=== PATIENT | female | born 1995 | race American Indian/Alaskan Native ===

== ENCOUNTER → 2020-07-17 | Emergency (ER) | payer SELFPAY ==
[~2020-07-17] MED LIST: ACETAMINOPHEN 325 MG TAB PO PRN; DIPHtheria,PERTUSSIS(ACELL),TETANUS VACCINE/PF 0.5 ML VIAL IM ONE; HALOPERIDOL LACTATE 5 MG/1 ML INJ IM ONE; HALOPERIDOL LACTATE 5 MG/1 ML INJ IM PRN; LORazepam 2 MG/ML VIAL IM ONE; LORazepam 2 MG/ML VIAL IM PRN; ONDANSETRON 4 MG ODT TAB PO PRN; ZIPRASIDONE MESYLATE 20 MG VIAL IM ONE
--- NOTE | 2020-07-17 16:38 | Emergency Department Report ---
ED General Adult HPI - General Chief complaint: Wound/Laceration Stated complaint: MENTAL HEALTH PUI?: No Time Seen by Provider: 07/17/20 16:31 Source: patient, RN notes reviewed, old records reviewed Mode of arrival: Ambulatory Limitations: Other (Patient is very withdrawn) - History of Present Illness Initial comments: The patient was evaluated in the emergency department for symptoms described in the history of present illness. He/she was evaluated in the context of the global COVID-19 pandemic, which necessitated consideration that the patient might be at risk for infection with the virus that causes COVID-19. Instit utional protocols and algorithms that pertain to the evaluation of patients at risk for COVID-19 are in a state of rapid change based on information released by regulatory bodies including the CDC and federal and state organizations. These policies and algorithms were followed during the patient's care in the emergency department. Please note that these policies, procedures and recommendations changed on a rapid basis. During the history and physical examination, I am chaperoned by oracle fusion developer Manasa Rod Patient is a 25-year-old female. She was reportedly brought to the hospital by her significant other, who is not available for additional information or collateral information. The patient presents with a number of self-inflicted superficial wounds to her left upper extremity. The patient also reports superficial accidental wound to her right upper extremity. She only has sup erficial left forearm pain, and denies headache, neck pain, chest pain, abdominal pain, shortness of breath, homicidality. She indicates that she was feeling suicidal. She indicates that she is having hallucinations. She is not sure if she overdosed on anything. Patient denies fever, , loss of taste, loss of smell, and Covid symptomatology. She reports that she has a history of bipolar, schizophrenia, and is not currently taking prescription medications. She cannot tell me why she inflicted the wounds on her left upper extremity. She is not quite sure when her last tetanus vaccination took place -: hour(s) Location: left, right, upper extremity, lower extremity Radiation: non-radiation Quality: aching Consistency: intermittent Improves with: rest Worsens with: movement - Related Data Allergies Allergy/AdvReac Type Severity Reaction Status Date / Time No Known Allergies Allergy Verified 07/17/20 16:12 ED Review of Systems ROS: Stated complaint: MENTAL HEALTH Other details as noted in HPI Constitutional: denies: fever Respiratory: denies: cough Cardiovascular: denies: chest pain Gastrointestinal: denies: abdominal pain Genitourinary: denies: urgency Musculoskeletal: myalgia Skin: rash, lesions Psychiatric: as per HPI, suicidal thoughts ED Past Medical Hx - Past Medical History Hx Psychiatric Treatment: Yes (Saw a psychologist for a brief period last hear) Additional medical history: pneumonia - Social History Smoking Status: Current Every Day Smoker Substance Use Type: Alcohol, Marijuana ED Physical Exam - General Limitations: No Limitations General appearance: alert, in no apparent distress - Head Head exam: Present: atraumatic, normocephalic - Eye Eye exam: Present: normal appearance, EOMI. Absent: nystagmus - ENT ENT exam: Present: normal exam, normal orophraynx, mucous membranes moist, normal external ear exam - Neck Neck exam: Present: normal inspection, full ROM. Absent: tenderness, meningismus - Respiratory Respiratory exam: Present: normal lung sounds bilaterally. Absent: respiratory distress, wheezes, rales, rhonchi, stridor, decreased breath sounds - Cardiovascular Cardiovascular Exam: Present: regular rate, normal rhythm, normal heart sounds. Absent: bradycardia, tachycardia, irregular rhythm, systolic murmur, diastolic murmur, rubs, gallop - GI/Abdominal GI/Abdominal exam: Present: soft. Absent: distended, tenderness, guarding, rebound, rigid, pulsatile mass - Extremities Exam Extremities exam: Present: full ROM, other (2+ pulses noted in the bilateral upper and lower extremities. There is no palpable cord. negative Homans sign. Muscular compartments are soft. The pelvis is stable.). Absent: normal inspection (There are a number of superficial linear wounds, on the volar aspect of the left forearm, parallel to each other. Nothing require sutures. On the right volar ring finger, superficial abrasion.), pedal edema, calf tenderness - Back Exam Back exam: Present: normal inspection, full ROM. Absent: tenderness, CVA tenderness (R), CVA tenderness (L), paraspinal tenderness, vertebral tenderness - Neurological Exam Neurological exam: Present: alert, other (No facial droop. Tongue midline. Extraocular movements intact bilaterally. Facial sensation intact to light touch in V1, V2, V3 distribution bilaterally. 5 and a 5 strength in 4 extremities. Sensation intact to light touch in 4 extremities.) - Psychiatric Psychiatric exam: Present: flat affect - Skin Skin exam: Present: warm, dry. Absent: rash ED Course Vital Signs 07/17/20 07/17/20 07/17/20 16:15 20:12 21:49 Temperature 98.6 F 97.5 F L Pulse Rate 96 H 148 H 98 H Respiratory 18 18 Rate Blood Pressure 128/93 Blood Pressure 129/84 [Right] O2 Sat by Pulse 100 98 100 Oximetry - Reevaluation(s) Reevaluation #1: 07/17/20 16:37 Differential diagnosis, including but not limited to: Medical clearance for psychiatric placement, self-inflicted wounds, superficial abrasions Assessment and plan: 25-year-old female, essentially presenting with superficial self-inflicted wounds, history/report of hallucinations, and suicidality. I counseled the patient on the need to obtain emergent laboratory studies to exclude time sensitive toxicologic/metabolic abnormalities, and also advised the patient that we would place her on a 1013, and she would require psychiatric evaluation after being medically cleared. Patient ran out from the emergency room. Nursing team to contact local law enforcement, and inform them that the patient has eloped/absconded from this emergency room, while on a 1013. Reevaluation #2: 07/17/20 17:33 Patient read presented to the emergency room. She is currently in our for for psychiatric holding area. Apparently, she was she was verbally agitated and belligerent, and required medication with haloperidol and Ativan that was ordered by my colleague. Additional orders have been placed. 07/18/20 00:00 Laboratory studies do not demonstrate any emergent medical condition. Tachycardia resolved. Nursing team informs me that patient is resting comfortably at this time. Patient does not appear to have an immediate medical contraindication to psychiatric admission, evaluation, consultation and placement. ED Medical Decision Making - Lab Data Result diagrams: 07/17/20 21:35 07/17/20 21:35 Vital Signs 07/17/20 16:15 Temperature 98.6 F Pulse Rate 96 H Blood Pressure 128/93 O2 Sat by Pulse 100 Oximetry Critical care attestation.: If time is entered above; I have spent that time in minutes in the direct care of this critically ill patient, excluding procedure time. ED Disposition Clinical Impression: Superficial abrasion, General medical exam, Medical clearance for psychiatric admission, History of hallucinations Disposition: [id number] PSY HOSP/PSY UNIT Is pt being admited?: No Does the pt Need Aspirin: No Condition: Good Referrals: PRIMARY CARE, [Primary Care Provider] - 3-5 Days
[2020-07-17 16:39] LABS: Amphetamine Screen,Urine PRESUMPTIVE NEGATIVE; Benzodiazepines Screen,Urine PRESUMPTIVE NEGATIVE; Cannabinoid Screen,Urine PRESUMPTIVE POSITIVE; Cocaine Screen,Urine PRESUMPTIVE NEGATIVE; Methadone Screen,Urine PRESUMPTIVE NEGATIVE; Opiate Screen,Urine PRESUMPTIVE NEGATIVE
[2020-07-17 16:41] LABS: Bacteria,Urine 1+ /HPF (Negative); Bilirubin,Urine NEG (Negative); Blood,Urine NEG (Negative); Color,Urine Yellow (Yellow); Mucus,Urine FEW /HPF; Protein,Urine <15 mg/dL mg/dL (Negative); RBC,Urine < 1.0 /HPF (0.0-6.0); Urobilinogen,Urine < 2.0 mg/dL (<2.0)
[2020-07-17 21:58] LABS: BUN/Creatinine Ratio 20; Blood Urea Nitrogen 16 mg/dL (7-17); Calcium 9.6 mg/dL (8.4-10.2); Hemolysis Index 15
[2020-07-17 22:03] LABS: Hemoglobin 13.2 gm/dl (10.1-14.3)
[2020-07-17 22:24] LABS: Hematocrit 37.8 % (30.3-42.9); Mean Corpuscular HGB Conc 35 % (30-34); Mean Corpuscular Volume 104 fl (79-97); Platelet Count 372 K/mm3 (140-440); Red Blood Count 3.63 M/mm3 (3.65-5.03); Red Cell Distribution Width 13.5 % (13.2-15.2)
[2020-07-17 23:05] LABS: HCG Qualitative,Urine Negative (Negative)
[2020-07-17 23:14] LABS: Total Cells Counted 100
[2020-07-17 23:16] LABS: Ovalocytes Rare; Platelet Estimate Consistent w Auto; Tear Drop Cells Rare
[2020-07-18] MEDS: BACITRACIN ZINC OINT 28.4 GM TP SCH ×3 (00:49→22:42)
--- NOTE | 2020-07-18 08:13 | Consultation ---
History of Present Illness - Reason for Consult Consult date: 07/18/20 Reason for consult: self inflicted wounds - History of Present Psychiatric Illness Per ED note, "Patient is a 25-year-old female. She was reportedly brought to the hospital by her significant other, who is not available for additional information or collateral information. The patient presents with a number of self-inflicted superficial wounds to her left upper extremity. The patient also reports superficial accidental wound to her right upper extremity. She only has superficial left forearm pain, and denies headache, neck pain, chest pain, abdominal pain, shortness of breath, homicidality. She indicates that she was feeling suicidal. She indicates that she is having hallucinations. She is not sure if she overdosed on anything." During my interview with Eva De Leon she is sitting on the bed eating breakfast. She is picking over her food with her fingers. She makes poor eye contact. her affect is flat. She is guarded. The patient says she has a previous diagnoses of schizoaffective disorder, and has been off her meds for about 6 months. The patient says she initially came her to have her cuts looked at. She says she did them. The patient says she hears voices telling her she's stupid and to hurt herself. When asked was she suicidal, the patient replies "now that I'm here, I am." She denies any illicit drug use, other than THC. She denies alcohol or nicotine. PAST PSYCHIATRIC HISTORY Diagnoses: Schizoaffective Disorder Suicide attempts or Self-harm behavior: Yes Prior psychiatric hospitalizations: Yes Substance Abuse history: Denies Previous psychiatric medications tried: Could not recall Outpatient treatment: Denies at present PAST MEDICAL HISTORY: none reported Family Psychiatric History: None reported or documented SOCIAL HISTORY Marital Status: Living Arrangements: Lives alone Employment Status: Unemployed Access to guns/weapons: Denies Education: high school History of Abuse: none reported Legal History: none reported REVIEW OF SYSTEMS Constitutional: Negative for weight loss ENT: Negative for stridor Respiratory: Negative for cough or hemoptysis All other systems reviewed and are negative MENTAL STATUS EXAMINATION General Appearance and Behavior: Age appropriate, good hygiene, wearing appropriate clothes, poor eye contact, cooperative polite with questioning. Cooperation: Participating/engaged, guarded Psychomotor Behavior: unremarkable and within normal limits Mood: "down" Affect and affective range: congruent with mood, flat Thought Process: goal directed Thought Content: hallucinations, suicidal thoughts Speech: Normal volume, Regular rate and rhythm, Intellectual Functioning: Average Suicidal Ideation: Yes Homicidal Ideation: Denies Hallucinations: Auditory Delusions: None elicite Impulse Control: Normal Insight and Judgment: Limited insight and judgment, Memory: Normal, Attention: Normal, Orientation: Alert, oriented, Assessment and Plan (1) Schizoaffective Disorder (20.9) Current Visit: Yes Status: Acute Treatment Start Seroquel 50mg po BID Start Trazodone 50mg po qhs Sitter: Per primary Medical: Per primary Disposition: Recommend acute inpatient psychiatric treatment. Case staffed with Dr. Lopez Will follow. Medications and Allergies Allergies Allergy/AdvReac Type Severity Reaction Status Date / Time No Known Allergies Allergy Verified 07/17/20 16:12 Active Meds: Active Medications Acetaminophen (Acetaminophen 325 Mg Tab) 650 mg PO Q6HR PRN PRN Reason: PAIN Bacitracin (Bacitracin Zinc Oint 28.4 Gm) 1 applic TP BID WILFRIDO Last Admin: 07/18/20 00:49 Dose: Not Given Documented by: Lorazepam (Lorazepam 2 Mg/Ml Vial) 2 mg IM Q4HR PRN PRN Reason: Agitation Ondansetron HCl (Ondansetron 4 Mg Odt Tab) 4 mg PO Q6HR PRN PRN Reason: Nausea Mental Status Exam - Vital signs Last Vital Signs Temp 97.6 F 07/18/20 07:58 Pulse 65 07/18/20 07:58 Resp 18 07/18/20 07:58 BP 114/75 07/18/20 07:58 Pulse Ox 98 07/18/20 07:58 Results Result Diagrams: 07/17/20 21:35 07/17/20 21:35 Abnormal lab results 07/17/20 07/17/20 07/17/20 Range/Units 21:35 21:35 21:35 RBC (3.65-5.03) M/mm3 MCV (79-97) fl MCH (28-32) pg MCHC (30-34) % Sodium 136 L (137-145) mmol/L Carbon Dioxide 20 L (22-30) mmol/L Total Creatine Kinase (30-135) units/L Salicylates < 0.3 L (2.8-20.0) mg/dL Acetaminophen 5.0 L (10.0-30.0) ug/mL 07/17/20 07/17/20 Range/Units 21:35 21:35 RBC 3.63 L (3.65-5.03) M/mm3 MCV 104 H (79-97) fl MCH 36 H (28-32) pg MCHC 35 H (30-34) % Sodium (137-145) mmol/L Carbon Dioxide (22-30) mmol/L Total Creatine Kinase 913 H (30-135) units/L Salicylates (2.8-20.0) mg/dL Acetaminophen (10.0-30.0) ug/mL All other labs normal.
[2020-07-18 10:48] LABS: Hemoglobin 13.3 gm/dl (10.1-14.3); Mean Corpuscular HGB Conc 34 % (30-34); Mean Corpuscular Volume 104 fl (79-97); Platelet Count 380 K/mm3 (140-440); Red Blood Count 3.77 M/mm3 (3.65-5.03); Red Cell Distribution Width 13.2 % (13.2-15.2)
[2020-07-18 11:17] LABS: Alanine Aminotransferase 18 units/L (7-56); Albumin 4.6 g/dL (3.9-5); BUN/Creatinine Ratio 18; Blood Urea Nitrogen 14 mg/dL (7-17); Calcium 9.6 mg/dL (8.4-10.2); Hemolysis Index 5
[2020-07-18] MEDS: QUEtiapine 25 MG TAB PO SCH ×2 (11:35→22:43)
[2020-07-18] MEDS: traZODone 50 MG TAB PO SCH (22:44)
--- NOTE | 2020-07-19 09:16 | Progress Note ---
Subjective - Reason for Consult Consult date: 07/19/20 Reason for consult: Suicidal - Chief Complaint Chief complaint: During my interview with the patient she is irritable, and appears anxious. She is pacing. The nursing staff states the patient constantly comes to the desk asking questions. She makes poor eye contact. Her affect is flat. She is asking about going home and states that if she loses her job her life is over. Explained to the patient that it would be at her best interest to continue with the plan of inpatient due to her mental health status with recently tying a string around her neck and attempting to hang herself while in the hospital, and self mutilation. The patient replies "I did that because I'm here." The patient then went down the thomas and threw a desk. She was moved in the seclusion room to monitor her closely. The patient is in the room pacing. REVIEW OF SYSTEMS Constitutional: Negative for weight loss ENT: Negative for stridor Respiratory: Negative for cough or hemoptysis All other systems reviewed and are negative MENTAL STATUS EXAMINATION General Appearance and Behavior: Age appropriate, good hygiene, wearing appropriate clothes, poor eye contact, irritable Cooperation: Participating/engaged, guarded Psychomotor Behavior: unremarkable and within normal limits Mood: "upset" Affect and affective range: congruent with mood, flat Thought Process: illogical Thought Content: suicidal thoughts Speech: Normal volume, Regular rate and rhythm, Intellectual Functioning: Average Suicidal Ideation: Yes Homicidal Ideation: Denies Hallucinations: Auditory Delusions: None elicited Impulse Control: impaired Insight and Judgment: Limited insight and judgment, Memory: Normal, Attention: Limited, Orientation: Alert, oriented, Assessment and Plan (1) Schizoaffective Disorder (20.9) Current Visit: Yes Status: Acute Treatment Increase Seroquel 100mg po BID Start Depakote DR 125mg po BID Start Vistaril 25mg po BID Start Haldol 5mg IM q6h agitation Agree with PRN Lorazepam Sitter: Per primary Medical: Per primary Disposition: Recommend acute inpatient psychiatric treatment. Case staffed with Dr. Lopez Will follow. Mental Status Exam - Vital signs Last Vital Signs Temp 97.6 F 07/19/20 08:40 Pulse 90 07/19/20 08:40 Resp 18 07/19/20 08:40 BP 116/74 07/19/20 08:40 Pulse Ox 99 07/19/20 08:40
[2020-07-19] MEDS: hydrOXYzine PAMOATE 25 MG CAP PO SCH ×2 (10:29→22:24)
[2020-07-19] MEDS: DIVALPROEX DR 125 MG TAB PO SCH ×2 (10:29→22:24)
[2020-07-19] MEDS: QUEtiapine 100 MG TAB PO SCH ×2 (10:30→22:24)
[2020-07-19] MEDS: BACITRACIN ZINC OINT 28.4 GM TP SCH ×2 (10:32→22:25)
[2020-07-19] MEDS: traZODone 50 MG TAB PO SCH (22:24)
[2020-07-20] MEDS: BACITRACIN ZINC OINT 28.4 GM TP SCH (10:39)
[2020-07-20] MEDS: hydrOXYzine PAMOATE 25 MG CAP PO SCH (10:41)
[2020-07-20] MEDS: DIVALPROEX DR 125 MG TAB PO SCH (10:41)
[2020-07-20] MEDS: QUEtiapine 100 MG TAB PO SCH (10:41)
[2020-07-20 11:40] VITALS: BP 115/77
== END ==
LOC: ED 14:43
DX: S50.812A Abrasion of left forearm, initial encounter (principal); R45.851 Suicidal ideations; Z04.6 Encounter for general psychiatric examination, requested by authority; F17.200 Nicotine dependence, unspecified, uncomplicated; F12.10 Cannabis abuse, uncomplicated; X58.XXXA Exposure to other specified factors, initial encounter; Y93.89 Activity, other specified; Y92.89 Other specified places as the place of occurrence of the external cause; Y99.8 Other external cause status
CPT/HCPCS: 36415; 80048; 80307; 81001; 81025; 82550; 83735; 85007; 85025; 96372; 99285; J2060; 80053; 80320; 85027; G0480; J3486; Q0177; U0003

== ENCOUNTER 2021-11-01 13:56 | Emergency (ER) | payer SELFPAY ==
[2021-11-01 16:16] LABS: Basophils % (Auto) 0.5 % (0.0-1.8); Eosinophils # (Auto) 0.4 K/mm3 (0.0-0.4); Eosinophils % (Auto) 4.1 % (0.0-4.3); Hematocrit 39.2 % (30.3-42.9); Hemoglobin 13.1 gm/dl (10.1-14.3); Lymphocytes # (Auto) 2.4 K/mm3 (1.2-5.4); Lymphocytes % (Auto) 25.3 % (13.4-35.0); Mean Corpuscular HGB Conc 33 % (30-34); Mean Corpuscular Volume 101 fl (79-97); Monocytes # (Auto) 0.5 K/mm3 (0.0-0.8); Monocytes % (Auto) 4.8 % (0.0-7.3); Platelet Count 466 K/mm3 (140-440); Red Blood Count 3.88 M/mm3 (3.65-5.03); Red Cell Distribution Width 13.8 % (13.2-15.2)
[2021-11-01 16:39] LABS: BUN/Creatinine Ratio 11; Blood Urea Nitrogen 8 mg/dL (7-17); Calcium 10.1 mg/dL (8.4-10.2); Hemolysis Index 6
[2021-11-01] MEDS ORDERED: LORazepam 1 MG TAB PO ONE (18:26)
--- NOTE | 2021-11-01 19:21 | Emergency Department Report ---
ED Psych HPI - General Chief Complaint: Psych Stated Complaint: PSYCH Time Seen by Provider: 11/01/21 14:29 Source: patient, EMS Mode of arrival: Ambulatory - History of Present Illness Initial Comments: AUDITORY HALLUCINATIONS, WANTS TO SELF HARM MD Complaint: suicidal ideation, feels depressed -: Gradual, days(s) Associated Psychiatric Symptoms: suicidal ideation, auditory hallucinations History of same: Yes Quality: intermittent Associated Symptoms: denies other symptoms If Self Harm: admits thoughts of, has plan - Related Data Allergies Allergy/AdvReac Type Severity Reaction Status Date / Time No Known Allergies Allergy Verified 11/01/21 14:14 ED Review of Systems ROS: Stated complaint: PSYCH Other details as noted in HPI Constitutional: denies: chills, fever Eyes: denies: eye pain, eye discharge, vision change ENT: denies: ear pain, throat pain Respiratory: denies: cough, shortness of breath, wheezing Cardiovascular: denies: chest pain, palpitations Endocrine: no symptoms reported Gastrointestinal: denies: abdominal pain, nausea, diarrhea Genitourinary: denies: urgency, dysuria, discharge Musculoskeletal: denies: back pain, joint swelling, arthralgia Skin: denies: rash, lesions Neurological: denies: headache, weakness, paresthesias Psychiatric: denies: anxiety, depression Hematological/Lymphatic: denies: easy bleeding, easy bruising ED Past Medical Hx - Past Medical History Previous Medical History?: No Hx Hypertension: No Hx Psychiatric Treatment: Yes (Saw a psychologist for a brief period last hear) Additional medical history: pneumonia - Social History Smoking Status: Current Some Day Smoker Substance Use Type: Other ED Physical Exam - General Limitations: No Limitations General appearance: alert, anxious - Head Head exam: Present: atraumatic, normocephalic - Eye Eye exam: Present: normal appearance - ENT ENT exam: Present: mucous membranes moist - Neck Neck exam: Present: normal inspection - Respiratory Respiratory exam: Present: normal lung sounds bilaterally. Absent: respiratory distress - Cardiovascular Cardiovascular Exam: Present: regular rate, normal rhythm. Absent: systolic murmur, diastolic murmur, rubs, gallop - GI/Abdominal GI/Abdominal exam: Present: soft, normal bowel sounds - Extremities Exam Extremities exam: Present: normal inspection - Back Exam Back exam: Present: normal inspection - Neurological Exam Neurological exam: Present: alert, oriented X3 - Psychiatric Psychiatric exam: Present: depressed, anxious, suicidal ideation - Skin Skin exam: Present: warm, dry, intact, normal color. Absent: rash ED Course Vital Signs 11/01/21 11/01/21 14:06 17:32 Temperature 98.4 F Pulse Rate 82 Respiratory 16 16 Rate Blood Pressure 125/84 [Left] O2 Sat by Pulse 98 98 Oximetry ED Medical Decision Making - Lab Data Result diagrams: 11/01/21 16:04 11/01/21 16:04 Critical care attestation.: If time is entered above; I have spent that time in minutes in the direct care of this critically ill patient, excluding procedure time. ED Disposition Clinical Impression: Psychosis Disposition: 30 STILL A PATIENT Is pt being admited?: No Does the pt Need Aspirin: No Condition: Stable Referrals: PRIMARY CARE, [Primary Care Provider] - 3-5 Days
[2021-11-01] MEDS ORDERED: LORazepam 2 MG/ML VIAL IM PRN (22:10)
[2021-11-01] MEDS ORDERED: HALOPERIDOL LACTATE 5 MG/1 ML INJ IM PRN (22:10)
--- NOTE | 2021-11-02 10:24 | Consultation ---
History of Present Illness - Reason for Consult Consult date: 11/02/21 Reason for consult: suicidal ideation - History of Present Psychiatric Illness The patient is a 26 year old female with history of Schizoaffective Disorder who resents to the ED with suicidal ideation. The patient was seen today. She is calm, alert and oriented x3. She reports ongoing intermittent suicidal ideation x2 weeks. She states stressor such as " being homeless." She endorses suicidal ideation with no plan; she reports having auditory/visual hallucinations" voices calling out my name, telling me to harm myself, I see faces." PAST PSYCHIATRIC HISTORY Diagnoses: Schizoaffective Disorder Suicide attempts or Self-harm behavior: Yes Prior psychiatric hospitalizations: Yes Substance Abuse history: Denies Previous psychiatric medications tried: Could not recall Outpatient treatment: Denies at present PAST MEDICAL HISTORY: none reported Family Psychiatric History: None reported or documented SOCIAL HISTORY Marital Status: Single Living Arrangements: Homeless Employment Status: Unemployed Access to guns/weapons: Denies Education: high school History of Abuse: none reported Legal History: none reported REVIEW OF SYSTEMS Constitutional: Negative for weight loss ENT: Negative for stridor Respiratory: Negative for cough or hemoptysis All other systems reviewed and are negative MENTAL STATUS EXAMINATION General Appearance and Behavior: Age appropriate, good hygiene, wearing appropriate clothes, poor eye contact, cooperative polite with questioning. Cooperation: Participating/engaged, guarded Psychomotor Behavior: unremarkable and within normal limits Mood: depressed Affect and affective range: congruent with mood Thought Process: goal directed Thought Content: hallucinations, suicidal thoughts Speech: Normal volume, Regular rate and rhythm, Intellectual Functioning: Average Suicidal Ideation: Yes Homicidal Ideation: Denies Hallucinations: Auditory/visual Delusions: None Impulse Control: Normal Insight and Judgment: Limited insight and judgment, Memory: Normal, Attention: Normal, Orientation: Alert, oriented, Assessment and Plan (1) Schizoaffective Disorder (20.9) Current Visit: Yes Status: Acute Treatment Start Seroquel 50mg po BID Start Sertraline 25mg po daily Sitter: Per primary Medical: Per primary Disposition: Recommend acute inpatient psychiatric treatment. Case staffed with Dr. Lopez Will follow. Medications and Allergies Allergies Allergy/AdvReac Type Severity Reaction Status Date / Time No Known Allergies Allergy Verified 11/01/21 14:14 Active Meds: Active Medications Haloperidol Lactate (Haloperidol Lactate 5 Mg/1 Ml Inj) 5 mg IM Q6HR PRN PRN Reason: Agitation Last Admin: 11/01/21 22:45 Dose: 5 mg Lorazepam (Lorazepam 2 Mg/Ml Vial) 2 mg IM Q4HR PRN PRN Reason: Agitation Last Admin: 11/01/21 22:45 Dose: 2 mg Mental Status Exam - Vital signs Last Vital Signs Temp 98.4 F 11/01/21 14:06 Pulse 82 11/01/21 14:06 Resp 16 11/01/21 17:32 BP 125/84 11/01/21 14:06 Pulse Ox 98 11/01/21 20:49 Results Result Diagrams: 11/01/21 16:04 11/01/21 16:04 Abnormal lab results 11/01/21 11/01/21 11/01/21 Range/Units 16:04 16:04 16:04 MCV 101 H (79-97) fl MCH 34 H (28-32) pg Plt Count 466 H (140-440) K/mm3 Salicylates < 0.3 L (2.8-20.0) mg/dL Acetaminophen 5.0 L (10.0-30.0) ug/mL All other labs normal.
--- NOTE | 2021-11-02 11:28 | Event Note ---
Date: 11/02/21 vss , no events overnight medically cleared awaiting urine, assessed by psych , awaiting acute psych admission
[2021-11-02] MEDS: SERTRALINE 25 MG TAB PO SCH (14:57)
[2021-11-02 16:33] LABS: RBC,Urine < 1.0 /HPF (0.0-6.0)
[2021-11-02 16:34] LABS: Bilirubin,Urine NEG (Negative); Blood,Urine NEG (Negative); Color,Urine Colorless (Yellow); Protein,Urine <15 mg/dL mg/dL (Negative); Urobilinogen,Urine < 2.0 mg/dL (<2.0)
[2021-11-02 16:46] LABS: Amphetamine Screen,Urine Negative; Benzodiazepines Screen,Urine Negative; Cocaine Screen,Urine Negative; Methadone Screen,Urine Negative; Opiate Screen,Urine Negative
[2021-11-02 16:58] LABS: Cannabinoid Screen,Urine Positive
[2021-11-02] MEDS ORDERED: QUEtiapine 25 MG TAB PO SCH (22:00)
--- NOTE | 2021-11-03 00:39 | Event Note ---
Date: 11/03/21 Patient complaining of vaginal itching and burning. Patient provides verbal informed consent for external pelvic examination. Chaperoned by Sendy Whittington. External examination unremarkable. Internal examination shows whitish discharge. Care team instructed to have patient self swab. Swab will be sent to lab, treatment pending swab results. Urine test ordered. Reassess. Wet prep is reviewed and appreciated. Start vaginal metronidazole for probable bacterial vaginosis. Urine test negative
[2021-11-03 00:57] LABS: HCG Qualitative,Urine Negative (Negative)
[2021-11-03] MEDS: SERTRALINE 25 MG TAB PO SCH (09:29)
[2021-11-03 11:46] VITALS: BP 134/67
--- NOTE | 2021-11-03 11:48 | Event Note ---
Date: 11/03/21 Patient is 26 years old female admitted to the ER for suicidal ideation. Vital signs stable. Labs reviewed and is unremarkable. Patient has been evaluated by psychiatric team and recommended inpatient psychiatric admission.
[2021-11-03] MEDS ORDERED: metroNIDAZOLE 0.75% VAGINAL GEL 70 GM VG SCH (22:00)
== END 2021-11-03 12:53 ==
LOC: EEVIPCON 13:56 → ED 13:56
DX: F29 Unspecified psychosis not due to a substance or known physiological condition (principal); F17.200 Nicotine dependence, unspecified, uncomplicated; Z20.822 Contact with and (suspected) exposure to COVID-19
CPT/HCPCS: 36415; 80048; 80307; 81001; 81025; 85025; 87210; 96372; 99285; J1630; J2060; U0003; 80320; G0480

== ENCOUNTER 2021-11-17 04:59 | Emergency (ER) | payer OTHER ==
[2021-11-17 05:52] VITALS: BP 113/63
--- NOTE | 2021-11-17 06:27 | Emergency Department Report ---
History of Present Illness - General Chief Complaint: Overdose Stated Complaint: PILL INGESTION/SI Time Seen by Provider: 11/17/21 06:19 Source: patient Mode of arrival: Stretcher Limitations: No Limitations - History of Present Illness Initial Comments: 26-year-old female with a history of schizoaffective disorder who now presents with overdose on unknown amount of Benadryl and trazodone around 3 AM about 3- 1/2 hours ago in an attempt to kill her self. Patient reported that she has been going through a lot of stress but will not say anything specific at this time. Patient however denied any chest pain, palpitation, or shortness of breath. Patient also denies any abdominal pain. Patient reported last menstrual period to be last month with no specific dates. When asked patient says she could be . No nausea or vomiting reported. No other modifying or associated factors reported. Poison control was called before patient arrived at the emergency room because a call was received from poison control asking if patient have arrived. They recommended giving a activated charcoal and check routine labs including CBC, CMP and drug screen with salicylate and acetaminophen. By the time patient was seen it was about 2 hours after arrival because the emergency room was busy with "patient that was brought in with STEMI and coded. - Related Data Allergies Allergy/AdvReac Type Severity Reaction Status Date / Time No Known Allergies Allergy Verified 11/01/21 14:14 ED Review of Systems ROS: Stated complaint: PILL INGESTION/SI Other details as noted in HPI Comment: All other systems reviewed and negative Psychiatric: anxiety, suicidal thoughts, other (Suicide attempt) ED Past Medical Hx - Past Medical History Previous Medical History?: Yes Hx Hypertension: No Hx Psychiatric Treatment: Yes (Saw a psychologist for a brief period last hear) Additional medical history: pneumonia, depression, astham, schizo-affective - Surgical History Past Surgical History?: No - Social History Smoking Status: Current Some Day Smoker Substance Use Type: Other ED Physical Exam - General Limitations: No Limitations General appearance: alert, in no apparent distress - Head Head exam: Present: normal inspection - Eye Eye exam: Present: normal appearance Pupils: Present: normal accommodation - ENT ENT exam: Present: normal exam, normal orophraynx, mucous membranes moist - Neck Neck exam: Present: normal inspection, full ROM. Absent: tenderness - Respiratory Respiratory exam: Present: normal lung sounds bilaterally. Absent: respiratory distress, accessory muscle use - Cardiovascular Cardiovascular Exam: Present: regular rate, normal rhythm, normal heart sounds - GI/Abdominal GI/Abdominal exam: Present: soft. Absent: distended, tenderness - Extremities Exam Extremities exam: Present: normal inspection, full ROM, normal capillary refill. Absent: tenderness - Back Exam Back exam: Present: normal inspection. Absent: tenderness, CVA tenderness (R), CVA tenderness (L) - Neurological Exam Neurological exam: Present: alert, oriented X3, CN II-XII intact - Psychiatric Psychiatric exam: Present: flat affect ED Course Vital Signs 11/17/21 05:50 Temperature 97.9 F Pulse Rate 70 Respiratory 16 Rate Blood Pressure 113/63 [Right] O2 Sat by Pulse 96 Oximetry - Reevaluation(s) Reevaluation #1: 11/17/21 06:32 OD on unknown amount of Benadryl and trazodone at around 3:00 or earlier which is about 3-1/2 hours ago in an attempt to hurt her self. Poison control initially recommended giving charcoal but is easily been 3-1/2 hours away from when the injection took place I do not believed that given charcoal will be beneficial to this patient so I will call poison control back for clarification. In the meantime will go ahead and order routine labs including CBC, CMP, UA, urine drug screen, aspirin and acetaminophen level. An EKG ordered noted to be normal. Reevaluation #2: 11/17/21 06:36 Percent control called back and they were updated as to the reason why patient will not benefit from giving charcoal at this point and they agreed. We will go ahead and hydrate the patient and continue to follow the work-up lab. Psychiatry will be consulted as well. 11/17/21 11:00 Poison control wanted us to monitor this patient for 6 hours before discharge-- Reevaluation #3: 11/17/21 13:21 Patient monitored for 7-1/2 hours while in the emergency room with no change in vital signs and lab review to be within normal limits. Because of the that poison control has this patient monitor for 6 hours we will go ahead and discharge patient home to close follow-up with her primary doctor and wanted to return to emergency room if symptoms worsen. ED Medical Decision Making - Lab Data Result diagrams: 11/17/21 06:33 11/17/21 06:33 - EKG Data -: EKG Interpreted by Me EKG shows normal: sinus rhythm Rate: normal - EKG Data Interpretation: normal EKG 11/17/21 10:57 Noted with normal sinus rhythm at a rate of 87 bpm, normal QTC with no ST changes in this normal ECG. 11/17/21 10:58 Repeated EKG 4 hours after patient presentation to ER is unchanged with normal sinus rhythm at a rate of 75 bpm and normal QTC with no ST changes noted. Critical care attestation.: If time is entered above; I have spent that time in minutes in the direct care of this critically ill patient, excluding procedure time. ED Disposition Clinical Impression: Overdose by ingestion, Suicide ideation Disposition: [address] [place] [address] Is pt being admited?: No Does the pt Need Aspirin: No Condition: Stable Referrals: PRIMARY CARE, [Primary Care Provider] - 3-5 Days
[2021-11-17 07:17] LABS: Basophils % (Auto) 0.5 % (0.0-1.8); Eosinophils # (Auto) 0.2 K/mm3 (0.0-0.4); Eosinophils % (Auto) 2.3 % (0.0-4.3); Hemoglobin 12.7 gm/dl (10.1-14.3); Lymphocytes # (Auto) 1.4 K/mm3 (1.2-5.4); Lymphocytes % (Auto) 15.2 % (13.4-35.0); Monocytes # (Auto) 0.6 K/mm3 (0.0-0.8); Monocytes % (Auto) 6.8 % (0.0-7.3)
[2021-11-17 07:27] LABS: Alanine Aminotransferase 12 units/L (7-56); Albumin 4.5 g/dL (3.9-5); BUN/Creatinine Ratio 15; Blood Urea Nitrogen 12 mg/dL (7-17); Calcium 9.3 mg/dL (8.4-10.2); Hemolysis Index 27
[2021-11-17 07:38] LABS: Hematocrit 36.8 % (30.3-42.9); Mean Corpuscular HGB Conc 34 % (30-34); Mean Corpuscular Volume 101 fl (79-97); Platelet Count 320 K/mm3 (140-440); Red Blood Count 3.65 M/mm3 (3.65-5.03); Red Cell Distribution Width 14.1 % (13.2-15.2)
[2021-11-17 09:51] LABS: HCG Qualitative,Urine Negative (Negative)
[2021-11-17 10:08] LABS: Bilirubin,Urine NEG (Negative); Blood,Urine NEG (Negative); Color,Urine Yellow (Yellow); Mucus,Urine FEW /HPF; Protein,Urine <15 mg/dL mg/dL (Negative); Urobilinogen,Urine < 2.0 mg/dL (<2.0)
[2021-11-17 11:40] LABS: Benzodiazepines Screen,Urine Negative; Cocaine Screen,Urine Negative; Methadone Screen,Urine Negative; Opiate Screen,Urine Negative
--- NOTE | 2021-11-17 11:47 | Electrocardiograph Report ---
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
--- NOTE | 2021-11-17 11:48 | Electrocardiograph Report ---
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
[2021-11-17 11:53] LABS: Amphetamine Screen,Urine Positive; Cannabinoid Screen,Urine Positive
== END 2021-11-17 16:24 | disposition still patient (30) ==
LOC: ED 04:59
DX: T45.0X2A Poisoning by antiallergic and antiemetic drugs, intentional self-harm, initial encounter (principal); T43.212A Poisoning by selective serotonin and norepinephrine reuptake inhibitors, intentional self-harm, initial encounter; R45.851 Suicidal ideations; Y92.89 Other specified places as the place of occurrence of the external cause; F17.200 Nicotine dependence, unspecified, uncomplicated
CPT/HCPCS: 36415; 80053; 80307; 80320; 81001; 81025; 82140; 83690; 84443; 84484; 85025; 93005; 99285; G0480

== ENCOUNTER 2022-02-23 11:44 | Outpatient (CLI) | payer OTHER ==
[2022-02-23 12:57] LABS: HCG Qualitative,Urine Positive (Negative)
== END 2022-02-23 11:45 | disposition home or self-care (01) ==
LOC: LAB 11:44
PROVIDERS: ATTEND Student in an Organized Health Care Education/Training Program
DX: F32.9 Major depressive disorder, single episode, unspecified (principal)
CPT/HCPCS: 81025

== ENCOUNTER 2022-03-14 09:18 | Outpatient (CLI) | payer OTHER ==
[2022-03-14 10:05] LABS: HCG Qualitative,Urine Positive (Negative)
== END 2022-03-14 09:19 | disposition home or self-care (01) ==
LOC: LAB 09:18
PROVIDERS: ATTEND Student in an Organized Health Care Education/Training Program
DX: F29 Unspecified psychosis not due to a substance or known physiological condition (principal)
CPT/HCPCS: 81025

== ENCOUNTER 2022-03-21 10:51 | Emergency (ER) | payer OTHER ==
--- NOTE | 2022-03-21 12:28 | Emergency Department Report ---
Stated Complaint: PAIN AFTER TAKING PILL - HPI History of Present Illness: 26 Y with abdominal pain x 2 weeks, [facility] . no active vaginal bleeding noted - ROS Review of Systems: abdominal pain in pelvic area, after taking pills - Exam Vital Signs: Vital Signs 03/21/22 12:22 Temperature 98.4 F Pulse Rate 91 H Respiratory 18 Rate Blood Pressure 122/83 [Left] O2 Sat by Pulse 99 Oximetry Physical Exam: non labored breathing. no acute distress amarilys normal. low abdominal tenderness noted/ MSE screening note: Focused history and physical exam performed. Due to findings the following was ordered: orders placed, pending room assignment for further eval. patient is stable and patient medical screen complete. ED Disposition for MSE Condition: Stable
--- NOTE | 2022-03-21 13:37 | Ultrasound Report ---
[facility] OBSTETRIC ULTRASOUND HISTORY: Abdominal and pelvic pain with no bleeding after taking pills 2 weeks ago COMPARISON: None. TECHNIQUE: Routine transabdominal OB ultrasound performed. FINDINGS: Uterus: Normal size measuring 6.7 x 3.4 x 4.0 cm. Gestational Sac: Not seen Yolk Sac: Not seen Fetus/Embryo: Not seen. Endometrium: The endometrium is homogeneous and measures 1.2 cm in thickness. Ovaries: The right ovary is normal in size and appearance with normal blood flow, measuring 2.1 x 1. 6 x 1.7 cm. The left ovary is not visualized. Additional findings: None. IMPRESSION No intrauterine is visualized. The endometrium measures 1.2 cm in thickness. The right ovary is unremarkable. The left ovary is not visualized. Signer Name: Sanya Olivia Jr, MD Signed: 03/21/2022 1:33 PM Workstation Name: [id number]
[2022-03-21 14:45] LABS: Alanine Aminotransferase 13 units/L (7-56); Albumin 4.8 g/dL (3.9-5); Blood Urea Nitrogen 9 mg/dL (7-17); Calcium 9.4 mg/dL (8.4-10.2); Hemolysis Index 47
[2022-03-21 14:46] LABS: BUN/Creatinine Ratio 13
[2022-03-21 17:11] LABS: Basophils % (Auto) 0.3 % (0.0-1.8); Eosinophils # (Auto) 0.3 K/mm3 (0.0-0.4); Eosinophils % (Auto) 3.9 % (0.0-4.3); Hematocrit 35.3 % (30.3-42.9); Hemoglobin 11.6 gm/dl (10.1-14.3); Mean Corpuscular HGB Conc 33 % (30-34); Mean Corpuscular Volume 103 fl (79-97); Monocytes # (Auto) 0.6 K/mm3 (0.0-0.8); Monocytes % (Auto) 8.5 % (0.0-7.3); Platelet Count 360 K/mm3 (140-440); Red Blood Count 3.42 M/mm3 (3.65-5.03); Red Cell Distribution Width 14.5 % (13.2-15.2)
[2022-03-21] MEDS ORDERED: KETOROLAC 10 MG TAB PO ONE (21:12)
--- NOTE | 2022-03-21 21:28 | Emergency Department Report ---
ED Abdominal Pain HPI - General Chief Complaint: Abdominal Pain Stated Complaint: PAIN AFTER TAKING PILL Time Seen by Provider: 03/21/22 20:44 Source: patient Mode of arrival: Ambulatory Limitations: No Limitations - History of Present Illness Initial Comments: 26-year-old black female with a past medical history of asthma presents to the emergency department for evaluation of abdominal pain. She states that 2 weeks ago she took a pill, had moderate amount of bleeding that has since stopped, but states that she has had persistent abdominal cramping since then. She states that pain at its worst is 5 out of 10 and intermittent. She denies fever, dysuria, nausea, vomiting, diarrhea, and vaginal discharge. She states that when she took the pill that she was about 3 weeks gestation per her calculations. Patient is with a LMP of late December. She states that she is concerned that she may still be and the pill did not work. MD Complaint: abdominal pain -: week(s) (2) Location: diffuse Radiation: none Migration to: no migration Severity scale (0 -10): 5 Quality: cramping Consistency: intermittent Associated Symptoms: denies: nausea, vomiting, diarrhea, fever, chills, dysuria, hematemesis, hematochezia, melena, hematuria, anorexia, syncope - Related Data LMP Date: 01/20/22 Previous Rx's Medication Instructions Recorded Last Taken Type Ketorolac [Toradol] 10 mg PO Q6H PRN #12 tab 03/21/22 Unknown Rx Allergies Allergy/AdvReac Type Severity Reaction Status Date / Time No Known Allergies Allergy Verified 11/01/21 14:14 ED Review of Systems ROS: Stated complaint: PAIN AFTER TAKING PILL Other details as noted in HPI Comment: All other systems reviewed and negative Constitutional: denies: chills, fever ENT: denies: congestion Respiratory: denies: shortness of breath Cardiovascular: denies: chest pain, palpitations Gastrointestinal: abdominal pain. denies: nausea, vomiting, diarrhea, hematemesis, melena, hematochezia Genitourinary: denies: urgency, dysuria Musculoskeletal: denies: back pain Skin: denies: rash Neurological: denies: headache, weakness ED Past Medical Hx - Past Medical History Previous Medical History?: No Hx Hypertension: No Hx Psychiatric Treatment: Yes (Saw a psychologist for a brief period last hear) Additional medical history: pneumonia, depression, astham, schizo-affective - Surgical History Past Surgical History?: No - Social History Smoking Status: Current Some Day Smoker Substance Use Type: Other - Medications Home Medications: Home Medications Medication Instructions Recorded Confirmed Last Taken Type Ketorolac [Toradol] 10 mg PO Q6H PRN #12 tab 03/21/22 Unknown Rx ED Physical Exam - General Limitations: No Limitations General appearance: alert, in no apparent distress - Head Head exam: Present: atraumatic, normocephalic - Eye Eye exam: Present: normal appearance. Absent: conjunctival injection, periorbital swelling, periorbital tenderness - ENT ENT exam: Present: normal exam - Neck Neck exam: Present: normal inspection, full ROM. Absent: tenderness, lymphadenopathy - Respiratory Respiratory exam: Present: normal lung sounds bilaterally. Absent: respiratory distress, wheezes, rales, rhonchi, stridor, chest wall tenderness - Cardiovascular Cardiovascular Exam: Present: regular rate, normal heart sounds - GI/Abdominal GI/Abdominal exam: Present: soft, normal bowel sounds. Absent: distended, tenderness, guarding, rebound, rigid - Extremities Exam Extremities exam: Present: normal inspection, full ROM, normal capillary refill. Absent: pedal edema, joint swelling, calf tenderness - Back Exam Back exam: Present: normal inspection. Absent: CVA tenderness (R), CVA te nderness (L) - Neurological Exam Neurological exam: Present: alert, oriented X3, CN II-XII intact, normal gait - Psychiatric Psychiatric exam: Present: normal affect, normal mood - Skin Skin exam: Present: warm, dry, intact, normal color ED Course Vital Signs 03/21/22 03/21/22 12:22 21:22 Temperature 98.4 F Pulse Rate 91 H Respiratory 18 16 Rate Blood Pressure 122/83 [Left] O2 Sat by Pulse 99 Oximetry ED Medical Decision Making - Lab Data Result diagrams: 03/21/22 14:05 03/21/22 14:05 - Radiology Data Radiology results: report reviewed, image reviewed ultrasound: FINDINGS: Uterus: Normal size measuring 6.7 x 3.4 x 4.0 cm. Gestational Sac: Not seen Yolk Sac: Not seen Fetus/Embryo: Not seen. Endometrium: The endometrium is homogeneous and measures 1.2 cm in thickness. Ovaries: The right ovary is normal in size and appearance with normal blood flow, measuring 2.1 x 1.6 x 1.7 cm. The left ovary is not visualized. Additional findings: None. IMPRESSION No intrauterine is visualized. The endometrium measures 1.2 cm in thickness. The right ovary is unremarkable. The left ovary is not visualized. - Medical Decision Making 26-year-old black female with a past medical history of asthma presents to the emergency department for evaluation of abdominal pain. She states that 2 weeks ago she took a pill, had moderate amount of bleeding that has since stopped, but states that she has had persistent abdominal cramping since then. She states that pain at its worst is 5 out of 10 and intermittent. She denies fever, dysuria, nausea, vomiting, diarrhea, and vaginal discharge. She states that when she took the pill that she was about 3 weeks gestation per her calculations. Patient is with a LMP of late December. She states that she is concerned that she may still be and the pill did not work. Physical exam unremarkable. No IUP noted on ultrasound. Patient will be discharged home with prescription for Toradol to use as needed and advised to follow-up with [facility] for further evaluation and management. She is advised to return to the emergency department as needed. She verbalizes understanding of and agreement with plan of care. Critical care attestation.: If time is entered above; I have spent that time in minutes in the direct care of this critically ill patient, excluding procedure time. ED Disposition Clinical Impression: Abdominal pain Qualifiers: Abdominal location: generalized Qualified Code(s): R10.84 - Generalized abdominal pain Disposition: HOME / SELF CARE / HOMELESS Is pt being admited?: No Does the pt Need Aspirin: No Condition: Stable Instructions: Abdominal Pain (ED), Abdominal Pain, Adult, [id number] Prescriptions: Ketorolac [Toradol] 10 mg PO Q6H PRN #12 tab PRN Reason: Pain Referrals: PRIMARY CARE, [Primary Care Provider] - 3-5 Days Forms: Work/School Release Form(ED) Time of Disposition: 21:30
[2022-03-21 22:08] VITALS: BP 139/81
== END 2022-03-21 22:09 | disposition home or self-care (01) ==
LOC: ED 10:51
DX: O26.891 Other specified pregnancy related conditions, first trimester (principal); R10.9 Unspecified abdominal pain; Z3A.01 Less than 8 weeks gestation of pregnancy; F17.200 Nicotine dependence, unspecified, uncomplicated
CPT/HCPCS: 36415; 76801; 80053; 84702; 84703; 85025; 99284